=== PATIENT | female | born 1980 | race Caucasian/White ===

== ENCOUNTER 2022-01-18 22:22 | Emergency (ER) | payer BC ==
[2022-01-18] MEDS ORDERED: LORazepam 0.5 MG Tab PO ONE (22:25)
[2022-01-18] MEDS ORDERED: Take Home: LORazepam 0.5 MG Tab, 2 Tab Pack PO ONE (23:15)
== END 2022-01-18 23:54 | disposition home or self-care (01) ==
LOC: CC.ED 22:22
DX: F41.9 Anxiety disorder, unspecified (principal); Z88.1 Allergy status to other antibiotic agents; Z79.899 Other long term (current) drug therapy
CPT/HCPCS: 36415; 80053; 85025; 86140; 99283; 99284; A9270-GY